=== PATIENT | female | born 1955 | race Caucasian/White ===

== ENCOUNTER → 2016-07-19 14:30 | Day surgery (SDC) | payer BC ==
[~2016-07-19 14:30] MED LIST: Bupivacaine 0.5% SDV PF* 30 ML VIAL ONE
[2016-07-19 21:56] VITALS: BP 174/92
--- NOTE | 2016-07-21 20:00 | OP ---
DATE OF OPERATION: 07/19/16 - [facility] DATE OF : 53 SURGEON: Frank Mar MD LANGUAGE SPECIALIST: CONCHA Carreno ANESTHESIOLOGIST: None. ANESTHESIA: Local only with digital block performed utilizing 0.5% Marcaine without epinephrine. PRE-OP DIAGNOSES: 1. Left thumb mucous cyst of the interphalangeal joint radial aspect. 2. 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 POST-OP DIAGNOSES: 1. Left thumb mucous cyst of the interphalangeal joint radial aspect. 2. 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 OPERATIVE PROCEDURE: 1. Excision of left thumb interphalangeal joint radial-sided mucous cyst. 2. Excision of left thumb subungual mass necessitating avulsion of the left thumb nail plate. 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 She has noticed a large bump that is come out over the radial aspect of the interphalangeal joint. The nail deformity had existed for similar amount of time. Due to the atypical picture, I gotten an MRI of the left thumb. She did indeed have a ganglion cyst coming off of the interphalangeal joint; however, it looked like there was a separate discrete subungual mass that was dark on T1 and brighter on T2. We talked about risks and benefits including the risk of significant nail plate deformity after removal of the mass. She elected to proceed with surgery. ESTIMATED BLOOD LOSS: 5 mL. COMPLICATIONS: None. FINDINGS: Ganglion cyst coming off of the interphalangeal joint. A separate soft tissue mass was excised. It was located under the radial aspect of the germinal matrix. DESCRIPTION OF PROCEDURE: Josiane was seen in the preoperative holding and the correct site, side and procedure were identified. We had a time-out. Then I anesthetized the finger with 0.5% Marcaine to perform a digital block proximally. She was then brought back to the operating room where the arm was prepped and draped in the usual fashion and a formal time-out was performed. I went ahead and exsanguinated using the tourniquet and left this proximally. I then went ahead and began by making a longitudinal incision over the mass centered over the radial aspect of the thumb interphalangeal joint. A large cyst was encountered. I T'd this back a little bit over the interphalangeal joint. Full thickness flaps were raised. I went ahead and excised the ganglion cyst and sent it off as a specimen. It was coming from the typical location between the terminal extensor tendon and the collateral ligament. This area was debrided and rongeur was used to nip back a little osteophyte there as well. At this point, I am satisfied with the excision of the cyst and so I irrigated the wound and let the skin flaps fall back. I then turned my attention to the nail where I used curved iris scissors to avulse the nail plate back to the level of the nail fold and I transected it there. It was obvious that the soft tissue mass was centered under the germinal matrix just at the level of the nail fold and little bit distal to that. I ended up having to just excise all of the nail plate to gain access to the mass. Once I had the nail plate avulsed, I went ahead and used the [place] blade to make a longitudinal incision through the germinal matrix and down a little bit on the sterile matrix. I developed the interval between the germinal matrix and the soft tissue mass. The [place] blade was used to excise this taking great care to not perforate additionally the germinal matrix. The mass was taken straight off the bone together with periosteum. There was a little area where berumen red spot was noted. Once I had fully excised the mass, I went ahead and let the flaps of matrix fall back. I then used a 6-0 chromic gut to repair the matrix with multiple simple interrupted sutures. I wanted to make sure that I had gotten an excellent repair of the germinal matrix all the way back just as far proximal as possible, so I went ahead and made an oblique incision through the nail folds, so I could get better view of the entirety of the germinal matrix. It indeed looked like it was very nicely repaired in its entirety. I therefore went ahead and took some 5-0 nylon suture and closed that incision as well as the T incision for the ganglion cyst excision. I then took a piece of the aluminum wrapper and cut this to size and then use some 4-0 nylon to tack this down with one suture proximal and one suture distal to splint up the nail folds. With the nail folds splinted, I went ahead and placed a piece of Xeroform over the sutures and over the nail bed. I then went ahead and released the tourniquet. The finger tip pinked up immediately. The wound was then dressed with some 1-inch Vi followed by Coban dressing. She was then taken to the recovery room in stable condition. [id number]/[facility] [place] #: [id number] MTDD
== END | disposition home or self-care (01) ==
LOC: OREAST 14:30
PROVIDERS: ATTEND Orthopaedic Surgery Hand Surgery
DX: M67.442 Ganglion, left hand (principal); L60.8 Other nail disorders
CPT/HCPCS: 88304